=== PATIENT | male | born 1955 | race Caucasian/White ===

== ENCOUNTER 2019-04-23 15:05 | Inpatient (IN) ==
[2019-04-23] MEDS ORDERED: traMADol 50 MG TABLET PO PRN (18:13)
[2019-04-23] MEDS ORDERED: D5% in Water 1,000 ML IVC PRN (18:28)
[2019-04-23] MEDS ORDERED: Dextrose Gel 15 GM/37.5 ML TUBE PO PRN ×2 (18:28)
[2019-04-23] MEDS ORDERED: *HR* Dextrose 50 % in Water (Syg) 50 ML SYRINGE IVP PRN (18:28)
[2019-04-23] MEDS ORDERED: Ondansetron ODT 4 MG TAB.RAPDIS SL PRN (19:01)
[2019-04-23] MEDS ORDERED: Mag Hydrox/Al Hydrox/Simeth 30 ML UDC PO PRN (19:01)
[2019-04-23] MEDS ORDERED: Acetaminophen 325 MG TABLET PO PRN (19:01)
[2019-04-23] MEDS ORDERED: Melatonin 3 MG TABLET PO PRN (19:05)
[2019-04-23] MEDS: Insulin LISPRO 300 UNITS/3 ML VIAL SQ SCH (20:16)
[2019-04-24 06:36] LABS: Basophils % 0.4 %; Eosinophils # 0.2 K/mcL (0.0-0.6); Eosinophils % 1.9 %; Hematocrit 35.1 % (37.5-50.1); Hemoglobin 11.9 g/dL (12.9-16.9); Immature Granulocytes % 0.2 % (0-4); Lymphocytes # 2.1 K/mcL (0.6-4.6); Mean Corpuscular HGB Conc 33.9 g/dL (31.6-35.5); Mean Corpuscular Hemoglobin 29.2 pg (28.0-33.3); Mean Corpuscular Volume 86.2 fL (83.0-100.0); Mean Platelet Volume 11.6 fL (9.4-12.4); Monocytes # 0.7 K/mcL (0.0-1.3); Monocytes % 6.4 %; Neutrophils # 7.8 K/mcL (1.6-8.9); Platelet Count 219 K/mcL (140-400); Red Blood Count 4.07 M/mcL (4.19-5.50); Red Cell Distribution Width 13.2 % (11.5-14.5); Segmented Neutrophils % 72.1 %; White Blood Count 10.8 K/mcL (4.3-11.1)
[2019-04-24 07:13] LABS: Albumin 3.5 g/dL (3.5-5.7); Albumin/Globulin Ratio 1.5 (1.1-2.2); Bilirubin,Total 0.6 mg/dL (0.3-1.0); Calcium 8.8 mg/dL (8.6-10.3); Globulin 2.3 g/dL (2.4-3.5); Magnesium 2.1 mg/dL (1.6-2.6); Potassium 4.1 mEq/L (3.5-5.1); Total Protein 5.8 g/dL (6.4-8.9)
[2019-04-24] MEDS: Insulin LISPRO 300 UNITS/3 ML VIAL SQ SCH ×4 (07:53→20:42)
--- NOTE | 2019-04-24 08:16 | Internal Med History&Physical ---
Date of Encounter: 04/24/19 Time of Encounter: 09:40 Assessment and Plan (1) Right pontine cerebrovascular accident Current visit: Yes Status: Acute Patient with recent history of a right pontine ischemic CVA resulting in left hemiparesis. 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 Noted slight dysarthria with speech. Physical therapy evaluation in progress with recommendations pending. Reports patient continued to have poor balance. We will continue with current plan of care and therapy. We will monitor blood pressure with a systolic goal less than 160. 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 No acute issues noted. Patient noted to continue have dysarthria. (3) Diabetes Current visit: No Status: Chronic No acute issues. Patient's glucose about well-controlled with fingerstick readings less than 150. We will continue with current fingersticks and sliding scale coverage. We will continue patient's current medication regimen. 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 We will keep a goal of less than 160 systolic for blood pressure due to patient's CVA. We will continue with current medications Qualifiers: Hypertension type: essential hypertension Qualified Code(s): I10 - Essential (primary) hypertension (5) CKD (chronic kidney disease) stage 3, GFR 30-59 ml/min Current visit: Yes Status: Chronic No acute issues. Patient's most recent creatinine was 1.57. Continue to monitor patient's renal status to serial labs. We will continue with current medications Internal Medicine - H&P: HPI Chief complaint: Pontine CVA Admitted From: Hospital to Hospital Transfer Plans for Post Hospital Care: Home History of present illness: Mr. Echavarria is a 64 year old male with history of Tomlin's palsy, CK stage III, NIDDM Type II presented at [facility] with left-sided weakness. He was not in tPA window, so Tx was deferred. Brain MRI was consistent with acute infarction in the right michael which measured 11.5 x 10 mm. The CTA of the head and neck were negative for any critical stenosis. Echocardiogram was negative for PFO. Neurology was consulted with recommendations to start the patient on Plavix and stop aspirin, which he was on for a previous stroke. He is also being started on sertraline for due to Hx of depression. He was admitted to this facility for further therapy related to his left hemiparesis and poor balance. Patient currently denies any discomforts or shortness of breath. Patient continues to show poor balance per therapy evaluation. Patient denies any current issues. Past Med Surg Social Fam HX - Past Medical History Medical history: diabetes, hyperlipidemia, hypertension, other Additional medical history: bells palsy. bone spur in right foot Psychiatric history: depression - Past Surgical History Surgical History: appendectomy - Social History Smoking Status: Never smoker Smokeless Tobacco Status: No Alcohol use: none Drug use: none - Family History Sister Hx Family Cancer: Yes (kidney) Internal Medicine - H&P: Meds Glimepiride [Amaryl] 2 mg PO QAM 04/19/19 [History] Losartan/Hydrochlorothiazide [Losartan-Hctz 100-25 mg Tab] 1 tab PO DAILY 04/19/19 [History] Metformin HCl [Glucophage] 500 mg PO DAILY 04/19/19 [History] Metoprolol Succinate [Toprol Xl] 25 mg PO DAILY 04/19/19 [History] Atorvastatin [Lipitor] 40 mg PO HS tablet 04/23/19 [Rx] Clopidogrel [Plavix] 75 mg PO DAILY tablet 04/23/19 [Rx] Sertraline [Zoloft] 50 mg PO DAILY tablet 04/23/19 [Rx] Tramadol HCl [Ultram] 50 mg PO Q8H PRN 7 Days #14 tab 04/23/19 [Rx] Allergy/AdvReac Type Severity Reaction Status Date / Time Amoxicillin Allergy Rash Verified 04/19/19 14:07 peanut Allergy Anaphylaxis Verified 04/19/19 14:07 Penicillins [PCN] Allergy Rash Verified 04/19/19 14:07 All Systems PM: A 10-system review of systems was performed and is negative for pertinent findings except as documented above in the HPI. - Constitutional Constitutional: as per HPI - EENT Eyes: as per HPI Ears: as per HPI Nose, mouth and throat: as per HPI - Cardiovascular Cardiovascular ROS IM: as per HPI - Respiratory Respiratory: as per HPI - Gastrointestinal Gastrointestinal: as per HPI - Genitourinary Genitourinary ROS male: as per HPI - Musculoskeletal Musculoskeletal ROS IM: as per HPI - Integumentary Integumentary IM: as per HPI - Neurological Neurological ROS: as per HPI - Psychiatric Psychiatric: as per HPI, depression - Endocrine Endocrine IM: as per HPI - Constitutional Vitals: Temp Pulse Resp BP Pulse Ox 98.6 F 61 16 137/75 96 04/24/19 08:00 04/24/19 08:00 04/24/19 08:00 04/24/19 08:00 04/24/19 08:00 General appearance: Present: A&O X 3, pleasant - Head Head exam: Present: atraumatic, normocephalic - Eye Eye exam: Present: PERRL, conjuntiva pink, sclera anicteric Pupils: Present: PERRL - Neck Neck exam general surgery: Present: supple, trachea midline. Absent: lymphadenopathy - Respiratory Respiratory exam: Present: decreased breath sounds, CTAB, rales. Absent: accessory muscle use, rhonchi, wheezes Additional comments: Lungs are clear throughout, but noted fine posterior basilar rales. Respiratory effort appears relaxed. No productive cough - Cardiovascular Cardiovascular exam: Present: RRR, +S1, +S2. Absent: diastolic murmur, gallop, rubs, systolic murmur - GI/Abdominal GI/Abdominal exam: Present: normal bowel sounds, soft, no peritoneal signs. Absent: distended, tenderness - Extremities Exam Extremities exam: Present: warm, radial pulses palpable and symmetrical. Absent: calf tenderness, cyanotic, pedal edema - Neurological Exam Neurological exam: Present: CN II-XII intact, oriented X3, facial droop, speech deficit. Absent: pronater drift Additional comments: Patient shows facial droop to the left side but does have a history of Tomlin's palsy. Patient noted to have slight dysarthria with speech. Denies any issues with swallow. Left hemiparesis with left extremities and 4/5 muscle strength in right extremity is 5/5 muscle strength. Noted left drift for both arm and leg. - Skin Skin exam: Present: dry, intact Internal Med - H&P Results - Labs CBC & Chem 7: 04/24/19 05:35 04/24/19 05:35 Labs: Short CBC 04/24/19 Range/Units 05:35 WBC 10.8 (4.3-11.1) K/mcL Hgb 11.9 L (12.9-16.9) g/dL Hct 35.1 L (37.5-50.1) % Plt Count 219 (140-400) K/mcL Neutrophils # 7.8 (1.6-8.9) K/mcL BMP 04/24/19 05:35 Sodium 139 Potassium 4.1 Chloride 107 Carbon Dioxide 22 L BUN 14 Creatinine 1.47 H Glucose 113 H Calcium 8.8 Liver Function 04/24/19 Range/Units 05:35 Total Bilirubin 0.6 (0.3-1.0) mg/dL AST 20 (13-39) Units/L ALT 13 (7-52) Units/L Alkaline Phosphatase 162 H (34-104) Units/L Albumin 3.5 (3.5-5.7) g/dL
[2019-04-24] MEDS: Metoprolol XL (24 HR) Succ 25 MG TAB.ER.24H PO SCH (08:33)
[2019-04-24] MEDS ORDERED: *HR* Metformin 500 MG TABLET PO SCH ×2 (09:00→17:00)
[2019-04-24] MEDS ORDERED: Losartan/HCTZ 50-12.5 TABLET PO SCH (09:00)
[2019-04-24] MEDS ORDERED: *HR* Glimepiride 4 MG TABLET PO SCH (09:00)
[2019-04-24] MEDS ORDERED: cloNIDine HCl 0.1 MG TABLET PO PRN (11:56)
[2019-04-24] MEDS: Cholecalciferol (D-3) 1,000 UNIT (25MCG) TABLET PO SCH (17:23)
[2019-04-24] MEDS: *HR* Enoxaparin 40 MG/0.4 ML SYRINGE SQ SCH (17:24)
[2019-04-25] MEDS: Insulin LISPRO 300 UNITS/3 ML VIAL SQ SCH ×4 (07:39→22:10)
[2019-04-25] MEDS: Metoprolol XL (24 HR) Succ 25 MG TAB.ER.24H PO SCH (08:22)
[2019-04-25] MEDS: Cholecalciferol (D-3) 1,000 UNIT (25MCG) TABLET PO SCH (08:22)
[2019-04-25] MEDS: *HR* Metformin 500 MG TABLET PO SCH (08:22)
[2019-04-25] MEDS: *HR* Enoxaparin 40 MG/0.4 ML SYRINGE SQ SCH (08:22)
--- NOTE | 2019-04-25 09:24 | Internal Med Progress Note ---
Date of Encounter: 04/25/19 Time of Encounter: 09:22 - Assessment and plan (1) Right pontine cerebrovascular accident Current Visit: Yes Status: Acute Assessment and plan: No acute issues. Patient continues with left hemiparesis. Left facial droop which is actually unchanged from preadmission from a history of left Tomlin palsy. Patient continues to participate and therapy and progress as well. We will continue with current plan of care (2) Tomlin's palsy Current Visit: Yes Status: Chronic Assessment and plan: Patient continues to have left facial droop which has been a chronic issue since a remote incident of left Tomlin palsy. (3) Diabetes Current Visit: Yes Status: Chronic Assessment and plan: No acute issues. Patient's glucoses were well-controlled with current medications. Patient has had to have a decrease in his metformin due to diarrhea. We will continue to monitor patient's glucose levels after reduction of medication and will cover with sliding scale if needed. Qualifiers: Diabetes mellitus type: type 2 Diabetes mellitus custodial insulin use: without terminal carman use Diabetes mellitus complication status: with kidney complications Diabetes mellitus complication detail: with chronic kidney disease Chronic kidney disease stage: stage 3 (moderate) Qualified Code(s): E11.22 - Type 2 diabetes mellitus with diabetic chronic kidney disease; N18.3 - Chronic kidney disease, stage 3 (moderate) (4) Hypertension Current Visit: Yes Status: Chronic Assessment and plan: Vital signs of been stable. We will continue with a systolic blood pressure goal of less than 160 due to his CVA. We will continue with current medications Qualifiers: Hypertension type: essential hypertension Qualified Code(s): I10 - Essential (primary) hypertension (5) CKD (chronic kidney disease) stage 3, GFR 30-59 ml/min Current Visit: Yes Status: Chronic Assessment and plan: No acute issues. Patient's most recent creatinine is 1.47. We will continue to follow patient's renal status and serial labs. We will continue with current medications. (6) Obstructive sleep apnea Current Visit: Yes Status: Acute Assessment and plan: Patient noted to have desaturations on his overnight pulse oximetry trending in which his saturations dropped to the mid 80s on room air. Patient denies any history of sleep apnea but statements have been made by his the patient snores at home. We will continue with O2 at night and will arrange for patient have outpatient polysomnography performed - Time Spent With Patient less than 15 minutes - Subjective Interval history: Patient prophylaxis currently denies any discomforts or shortness of breath. Patient denies any acute neurological changes. Patient states she continues to have loose stools and states that he had 3 BMs yesterday, which he relates to an increase in his metformin. Patient's metformin has since been reduced and dosing. Patient also reportedly experienced several desaturations last night wh en he he was wearing his overnight oximetry for trending. He reported to have dropped to the mid 80s for saturations. Patient denies a history of obstructive sleep apnea, but his reportedly has stated that he snores at home - Constitutional Vitals: Temp Pulse Resp BP Pulse Ox 98.6 F 68 18 155/73 93 04/25/19 07:11 04/25/19 07:11 04/25/19 07:11 04/25/19 07:11 04/25/19 07:11 General appearance: Present: A&O X 3, pleasant - Head Head exam: Present: atraumatic, normocephalic - Eye Eye exam: Present: PERRL, conjuntiva pink, sclera anicteric Pupils: Present: PERRL - Neck Neck exam general surgery: Present: supple, trachea midline. Absent: lymphadenopathy - Respiratory Respiratory exam: Present: CTAB. Absent: accessory muscle use, rales, rhonchi, wheezes - Cardiovascular Cardiovascular exam: Present: RRR, +S1, +S2. Absent: diastolic murmur, gallop, rubs, systolic murmur - GI/Abdominal GI/Abdominal exam: Present: normal bowel sounds, soft, no peritoneal signs. Absent: distended, tenderness - Extremities Exam Extremities exam: Present: warm, radial pulses palpable and symmetrical. Absent: calf tenderness, cyanotic, pedal edema - Neurological Exam Neurological exam: Present: oriented X3, facial droop, speech deficit. Absent: pronater drift Additional comments: Patient continues to have a slight facial droop, but does have a history of left Tomlin's palsy. Patient states that he has not filled his facial droop is any wor se. Noticed slight dysarthria. Patient continues to have left hemiparesis with left extremities at 4/5 muscle strength in right extremities at 5/5 muscle strength - Skin Skin exam: Present: dry, intact Internal Medicine: Result - Labs CBC & Chem 7: 04/24/19 05:35 04/24/19 05:35 Consult Discharge Plan - Plan Referrals: Eligio Mancilla DO [Primary Care Provider] -
[2019-04-26 06:59] LABS: BUN/Creatinine Ratio 12 (6-26); Blood Urea Nitrogen 17 mg/dL (8-23); Calcium 8.9 mg/dL (8.6-10.3); Carbon Dioxide 25 mEq/L (23-29); Chloride 107 mEq/L (98-107); Glucose 88 mg/dL (70-105); Osmolality,Calculated 291 (280-300); Potassium 3.4 mEq/L (3.5-5.1); Sodium 140 mEq/L (136-145); eGFR For African Americans > 60 (> 60); eGFR For Non-African Americans 51 (> 60)
[2019-04-26] MEDS: Insulin LISPRO 300 UNITS/3 ML VIAL SQ SCH ×4 (09:23→20:19)
--- NOTE | 2019-04-26 09:23 | Internal Med Progress Note ---
Date of Encounter: 04/26/19 Time of Encounter: 09:22 - Assessment and plan (1) CVA (cerebral vascular accident) Current Visit: No Status: Acute Assessment and plan: Right pontine stroke is seeming to have improvement, almost daily. Therapies will continue as planned. Qualifiers: CVA mechanism: unspecified Qualified Code(s): I63.9 - Cerebral infarction, unspecified (2) Obstructive sleep apnea Current Visit: Yes Status: Acute Assessment and plan: Patient wore oxygen last night and states that he slept better. He will require documentation again before discharge so we may get him home O2 and until he can go through polysomnography. (3) Hypertension Current Visit: Yes Status: Chronic Assessment and plan: Stable for now. Qualifiers: Hypertension type: essential hypertension Qualified Code(s): I10 - Essential (primary) hypertension (4) Diabetes Current Visit: Yes Status: Chronic Assessment and plan: We will continue on current regimen and follow as noted in subjective. Qualifiers: Diabetes mellitus type: type 2 Diabetes mellitus care home insulin use: without care home use Diabetes mellitus complication status: with kidney compl ications Diabetes mellitus complication detail: with chronic kidney disease Chronic kidney disease stage: stage 3 (moderate) Qualified Code(s): E11.22 - Type 2 diabetes mellitus with diabetic chronic kidney disease; N18.3 - Chronic kidney disease, stage 3 (moderate) (5) Hypokalemia Current Visit: Yes Status: Acute Assessment and plan: Will supplement and check magnesium. (6) CKD (chronic kidney disease) stage 3, GFR 30-59 ml/min Current Visit: Yes Status: Chronic Assessment and plan: Stable. (7) Depression due to acute cerebrovascular accident (CVA) Current Visit: No Status: Acute Assessment and plan: Clinically stable and mood seems better. - Subjective Interval history: Patient is without complaint. He feels that he is getting stronger and more coordination. Therapy is going well. Diarrhea is better. I told him that in a couple of days we will think about increasing his Glucophage. However, his sugar was only 82 this morning so we may not need to. Patient has no complaint of chest discomfort, dyspnea, orthopnea, palpitations, nausea or vomiting, constipation or diarrhea, other changes in bowel habits, difficulty with urination, rash or itching, or other new complaints, except as mentioned above. Review of systems is otherwise negative. I discussed management of patient's care with nursing staff. - Constitutional Vitals: Temp Pulse Resp BP Pulse Ox 98.1 F 69 16 133/70 93 04/26/19 07:35 04/26/19 07:35 04/26/19 07:35 04/26/19 07:35 04/26/19 07:35 Exam: Examination: (Except as mentioned above): General: In no apparent distress. Alert and oriented 3. Nondiaphoretic. Head: Atraumatic and normocephalic. Respiratory: No use of accessory muscles. Lungs are clear throughout. Normal airflow. Cardiovascular: Regular rate and rhythm without murmur appreciated. Abdomen: Bowel sounds are normal. No hepatosplenomegaly mass or tenderness appreciated. Obese and therefore difficult to palpate deeply. Extremities: No cyanosis clubbing or edema. Patient is examined upright in chair and this also limits exam. Skin: Warm and non-diaphoretic with no new lesions noted. Internal Medicine: Result - Labs CBC & Chem 7: 04/24/19 05:35 04/26/19 05:13 Labs: [facility] 04/26/19 05:13 Sodium 140 Potassium 3.4 L Chloride 107 Carbon Dioxide 25 BUN 17 Creatinine 1.41 H Glucose 88 Calcium 8.9 Consult Discharge Plan - Plan Referrals: Eligio Mancilla DO [Primary Care Provider] -
[2019-04-26] MEDS: *HR* Metformin 500 MG TABLET PO SCH (09:37)
[2019-04-26] MEDS: Metoprolol XL (24 HR) Succ 25 MG TAB.ER.24H PO SCH (09:37)
[2019-04-26] MEDS: Cholecalciferol (D-3) 1,000 UNIT (25MCG) TABLET PO SCH (09:37)
[2019-04-26] MEDS: *HR* Enoxaparin 40 MG/0.4 ML SYRINGE SQ SCH (09:38)
[2019-04-27] MEDS: Insulin LISPRO 300 UNITS/3 ML VIAL SQ SCH ×4 (07:26→20:25)
[2019-04-27] MEDS: Metoprolol XL (24 HR) Succ 25 MG TAB.ER.24H PO SCH (07:41)
[2019-04-27] MEDS: Cholecalciferol (D-3) 1,000 UNIT (25MCG) TABLET PO SCH (07:41)
[2019-04-27] MEDS: *HR* Enoxaparin 40 MG/0.4 ML SYRINGE SQ SCH (07:42)
[2019-04-27] MEDS: *HR* Metformin 500 MG TABLET PO SCH (07:42)
--- NOTE | 2019-04-27 14:36 | Internal Med Progress Note ---
Date of Encounter: 04/27/19 Time of Encounter: 14:36 - Assessment and plan (1) CVA (cerebral vascular accident) Current Visit: No Status: Acute Assessment and plan: Right pontine stroke is continuing to improve. Will resume therapy, tomorrow. Qualifiers: CVA mechanism: unspecified Qualified Code(s): I63.9 - Cerebral infarction, unspecified (2) Obstructive sleep apnea Current Visit: Yes Status: Acute Assessment and plan: We will continue to follow. (3) Hypertension Current Visit: Yes Status: Chronic Assessment and plan: Adequate control. Qualifiers: Hypertension type: essential hypertension Qualified Code(s): I10 - Essential (primary) hypertension (4) Diabetes Current Visit: Yes Status: Chronic Assessment and plan: We will continue current regimen. Qualifiers: Diabetes mellitus type: type 2 Diabetes mellitus residential insulin use: without residential use Diabetes mellitus complication status: with kidney complications Diabetes mellitus complication detail: with chronic kidney disease Chronic kidney disease stage: stage 3 (moderate) Qualified Code(s): E11.22 - Type 2 diabetes mellitus with diabetic chronic kidney disease; N18.3 - Chronic kidney disease, stage 3 (moderate) (5) Hypokalemia Current Visit: Yes Status: Acute Assessment and plan: We will check again tomorrow. (6) CKD (chronic kidney disease) stage 3, GFR 30-59 ml/min Current Visit: Yes Status: Chronic Assessment and plan: Stable and will follow. (7) Depression due to acute cerebrovascular accident (CVA) Current Visit: No Status: Acute Assessment and plan: Seems to be improved. - Subjective Interval history: Patient is without complaint. Patient feels that he slept well last night and needs scanning more strength in his left side. He feels that his voice is weaker as the day goes on but generally improved. He denies other problems. Diarrhea has resolved. Patient has no complaint of chest discomfort, dyspnea, orthopnea, palpitations, nausea or vomiting, constipation or diarrhea, other changes in bowel habits, difficulty with urination, rash or itching, or other new complaints, except as mentioned above. Review of systems is otherwise negative. I discussed management of patient's care with nursing staff. - Constitutional Vitals: Temp Pulse Resp BP Pulse Ox 98.2 F 63 16 137/77 96 04/27/19 07:00 04/27/19 07:00 04/27/19 07:00 04/27/19 07:00 04/27/19 07:00 Exam: Examination: (Except as mentioned above): General: In no apparent distress. Alert and oriented 3. Nondiaphoretic. Head: Atraumatic and normocephalic. Respiratory: No use of accessory muscles. Lungs are clear throughout. Normal airflow. Cardiovascular: Regular rate and rhythm without murmur appreciated. Abdomen: Bowel sounds are normal. No hepatosplenomegaly mass or tenderness appreciated. Obese and therefore difficult to palpate deeply. Patient is examined upright in chair and this also limits exam. Extremities: No cyanosis clubbing or edema. Skin: Warm and non-diaphoretic with no new lesions noted. Neurological: Patient still with minimal left-sided weakness which might be old from Tomlin's palsy or from stroke. Left hand grasp is good at 4+/5, however, he has some ataxia. Foot dorsiflexion is still slightly weak but again, improved. Internal Medicine: Result - Labs CBC & Chem 7: 04/24/19 05:35 04/26/19 05:13 Consult Discharge Plan - Plan Referrals: Eligio Mancilla DO [Primary Care Provider] -
[2019-04-28] MEDS: Insulin LISPRO 300 UNITS/3 ML VIAL SQ SCH ×4 (08:20→20:03)
[2019-04-28] MEDS: Metoprolol XL (24 HR) Succ 25 MG TAB.ER.24H PO SCH (08:24)
[2019-04-28] MEDS: Cholecalciferol (D-3) 1,000 UNIT (25MCG) TABLET PO SCH (08:25)
[2019-04-28] MEDS: *HR* Metformin 500 MG TABLET PO SCH (08:25)
[2019-04-28] MEDS: *HR* Enoxaparin 40 MG/0.4 ML SYRINGE SQ SCH (08:25)
--- NOTE | 2019-04-28 10:15 | Internal Med Progress Note ---
Date of Encounter: 04/28/19 Time of Encounter: 10:11 - Assessment and plan (1) Right pontine cerebrovascular accident Current Visit: Yes Status: Acute Assessment and plan: No acute issues. Patient continues with left hemiparesis, which he seems to have an increased strength. Left facial droop which is actually unchanged from preadmission from a history of left Tomlin palsy. Patient continues to participate and therapy and progress as well. We will continue with current plan of care. 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 (3) Diabetes Current Visit: Yes Status: Chronic Assessment and plan: No acute issues. Patient's glucoses were well-controlled with current medications. Patient has had to have a decrease in his metformin due to diarrhea. We will continue to monitor patient's glucose levels after reduction of medication and will cover with sliding scale if needed. Qualifiers: Diabetes mellitus type: type 2 Diabetes mellitus usp insulin use: without usp use Diabetes mellitus complication status: with kidney complications Diabetes mellitus complication detail: with chronic kidney disease Chronic kidney disease stage: stage 3 (moderate) Qualified Code(s): E11.22 - Type 2 diabetes mellitus with diabetic chronic kidney disease; N18.3 - Chronic kidney disease, stage 3 (moderate) (4) Hypertension Current Visit: Yes Status: Chronic Assessment and plan: Vital signs of been stable. We will continue with a systolic blood pressure goal of less than 160 due to his CVA. We will continue with current medications Qualifiers: Hypertension type: essential hypertension Qualified Code(s): I10 - Essential (primary) hypertension (5) CKD (chronic kidney disease) stage 3, GFR 30-59 ml/min Current Visit: Yes Status: Chronic Assessment and plan: No acute issues. Patient's most recent creatinine is 1.41. We will continue to follow patient's renal status and serial labs. We will continue with current medications. (6) Obstructive sleep apnea Current Visit: Yes Status: Acute Assessment and plan: Patient noted to have desaturations on his overnight pulse oximetry trending in which his saturations dropped to the mid 80s on room air. Patient denies any history of sleep apnea but statements have been made by his the patient snores at home. We will continue with O2 at night and will arrange for patient have outpatient polysomnography performed - Time Spent With Patient less than 15 minutes - Subjective Interval history: Patient appears relaxed and currently denies any discomforts or shortness of breath. Patient states that he pulses strength has been only returning to his left extremities. He denies any difficulty with swallow. Patient states that his diarrhea has lessened over the past few days. - Constitutional Vitals: Temp Pulse Resp BP Pulse Ox 98.4 F 65 14 130/75 92 04/28/19 08:43 04/28/19 08:43 04/28/19 08:43 04/28/19 08:43 04/28/19 08:43 General appearance: Present: A&O X 3, pleasant - Head Head exam: Present: atraumatic, normocephalic - Eye Eye exam: Present: PERRL, conjuntiva pink, sclera anicteric Pupils: Present: PERRL - Neck Neck exam general surgery: Present: supple, trachea midline. Absent: lymphadenopathy - Respiratory Respiratory exam: Present: CTAB. Absent: accessory muscle use, rales, rhonchi, wheezes - Cardiovascular Cardiovascular exam: Present: RRR, +S1, +S2. Absent: diastolic murmur, gallop, rubs, systolic murmur - GI/Abdominal GI/Abdominal exam: Present: normal bowel sounds, soft, no peritoneal signs. Absent: distended, tenderness - Extremities Exam Extremities exam: Present: warm, radial pulses palpable and symmetrical. Abs ent: calf tenderness, cyanotic, pedal edema - Neurological Exam Neurological exam: Present: CN II-XII intact, oriented X3, no focal deficits, pronater drift, facial droop, speech deficit Additional comments: Patient continues with left facial droop which is chronic residual from remote Tomlin's palsy. Patient continues with slight dysarthria. Left hemiparesis with left extremities at 4/5 muscle strength. And right extremities at 5/5 muscle strength. Patient continues to show a left pronator drift - Skin Skin exam: Present: dry, intact Internal Medicine: Result - Labs CBC & Chem 7: 04/24/19 05:35 04/26/19 05:13 Consult Discharge Plan - Plan Referrals: Eligio Mancilla DO [Primary Care Provider] -
[2019-04-29] MEDS: Insulin LISPRO 300 UNITS/3 ML VIAL SQ SCH ×4 (07:53→20:20)
[2019-04-29] MEDS: Metoprolol XL (24 HR) Succ 25 MG TAB.ER.24H PO SCH (09:34)
[2019-04-29] MEDS: Cholecalciferol (D-3) 1,000 UNIT (25MCG) TABLET PO SCH (09:34)
[2019-04-29] MEDS: *HR* Enoxaparin 40 MG/0.4 ML SYRINGE SQ SCH (09:34)
[2019-04-29] MEDS: *HR* Metformin 500 MG TABLET PO SCH (09:34)
--- NOTE | 2019-04-29 11:12 | Internal Med Progress Note ---
Date of Encounter: 04/29/19 Time of Encounter: 11:07 - Assessment and plan (1) Right pontine cerebrovascular accident Current Visit: Yes Status: Acute Assessment and plan: Continue PT and OT. will monitor progress. Left-sided weakness. Has had left facial droop since had Tomlin's palsy episode. 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 Monitor fingerstick blood sugar. Qualifiers: Diabetes mellitus type: type 2 Diabetes mellitus spice cleaner insulin use: without snf use Diabetes mellitus complication status: with kidney complications Diabetes mellitus complication detail: with chronic kidney disease Chronic kidney disease stage: stage 3 (moderate) Qualified Code(s): E11.22 - Type 2 diabetes mellitus with diabetic chronic kidney disease; N18.3 - Chronic kidney disease, stage 3 (moderate) (4) Hypertension Current Visit: Yes Status: Chronic Assessment and plan: Controlled with current medication. Monitor blood pressure. Qualifiers: Hypertension type: essential hypertension Qualified Code(s): I10 - Essential (primary) hypertension (5) CKD (chronic kidney disease) stage 3, GFR 30-59 ml/min Current Visit: Yes Status: Chronic Assessment and plan: Stable. Avoid nephrotoxic agents. Last creatinine level I.41. - Time Spent With Patient less than 15 minutes - Subjective Interval history: Participating well with therapy. Denies any pain complaints, fever, chills, nausea vomiting or diarrhea, shortness breath or chest pain. - Constitutional Vitals: Temp Pulse Resp BP Pulse Ox 97.9 F 63 16 137/78 92 04/29/19 07:00 04/29/19 07:00 04/29/19 07:00 04/29/19 07:00 04/29/19 07:00 General appearance: Present: A&O X 3, pleasant Exam: Left facial droop - Head Head exam: Present: atraumatic, normocephalic - Eye Eye exam: Present: PERRL, conjuntiva pink, sclera anicteric Pupils: Present: PERRL - Neck Neck exam general surgery: Present: supple, trachea midline. Absent: lymphadenopathy - Respiratory Respiratory exam: Present: CTAB. Absent: accessory muscle use, rales, rhonchi, wheezes - Cardiovascular Cardiovascular exam: Present: RRR, +S1, +S2. Absent: diastolic murmur, gallop, rubs, systolic murmur - GI/Abdominal GI/Abdominal exam: Present: normal bowel sounds, soft, no peritoneal signs. Absent: distended, tenderness - Extremities Exam Extremities exam: Present: warm, radial pulses palpable and symmetrical. Absent: calf tenderness, cyanotic, pedal edema Additional comments: Left-sided weakness - Neurological Exam Neurological exam: Present: CN II-XII intact, oriented X3, no focal deficits. Absent: pronater drift, facial droop, speech deficit - Skin Skin exam: Present: dry, intact Internal Medicine: Result - Labs CBC & Chem 7: 04/24/19 05:35 04/26/19 05:13 Consult Discharge Plan - Plan Referrals: Eligio Mancilla DO [Primary Care Provider] -
[2019-04-30 06:12] LABS: BUN/Creatinine Ratio 14 (6-26); Blood Urea Nitrogen 20 mg/dL (8-23); Calcium 9.1 mg/dL (8.6-10.3); Carbon Dioxide 25 mEq/L (23-29); Chloride 106 mEq/L (98-107); Glucose 106 mg/dL (70-105); Osmolality,Calculated 293 (280-300); Potassium 3.8 mEq/L (3.5-5.1); Sodium 140 mEq/L (136-145); eGFR For African Americans > 60 (> 60); eGFR For Non-African Americans 50 (> 60)
[2019-04-30] MEDS: Insulin LISPRO 300 UNITS/3 ML VIAL SQ SCH ×4 (07:41→20:29)
[2019-04-30] MEDS: *HR* Metformin 500 MG TABLET PO SCH (07:54)
[2019-04-30] MEDS: Cholecalciferol (D-3) 1,000 UNIT (25MCG) TABLET PO SCH (07:54)
[2019-04-30] MEDS: *HR* Enoxaparin 40 MG/0.4 ML SYRINGE SQ SCH (07:54)
[2019-04-30] MEDS: Metoprolol XL (24 HR) Succ 25 MG TAB.ER.24H PO SCH (07:55)
--- NOTE | 2019-04-30 12:06 | Internal Med Progress Note ---
Date of Encounter: 04/30/19 Time of Encounter: 12:05 - Assessment and plan (1) Right pontine cerebrovascular accident Current Visit: Yes Status: Acute Assessment and plan: Continue PT and OT. will monitor progress. Left-sided weakness. Has had left facial droop since had Tomlin's palsy episode. 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 Monitor fingerstick blood sugar. Qualifiers: Diabetes mellitus type: type 2 Diabetes mellitus intermediate accountant insulin use: without group home use Diabetes mellitus complication status: with kidney complications Diabetes mellitus complication detail: with chronic kidney disease Chronic kidney disease stage: stage 3 (moderate) Qualified Code(s): E11.22 - Type 2 diabetes mellitus with diabetic chronic kidney disease; N18.3 - Chronic kidney disease, stage 3 (moderate) (4) Hypertension Current Visit: Yes Status: Chronic Assessment and plan: Controlled with current medication. Monitor blood pressure. Qualifiers: Hypertension type: essential hypertension Qualified Code(s): I10 - Essential (primary) hypertension (5) CKD (chronic kidney disease) stage 3, GFR 30-59 ml/min Current Visit: Yes Status: Chronic Assessment and plan: Stable. Avoid nephrotoxic agents. Last creatinine level I.41. - Time Spent With Patient less than 15 minutes - Subjective Interval history: Ambulating with Walker. Standby assist to contact guard assist. Participating well with therapy. Denies any pain complaints, fever, chills, nausea vomiting or diarrhea, shortness breath or chest pain. - Constitutional Vitals: Temp Pulse Resp BP Pulse Ox 98.3 F 63 18 137/78 95 04/30/19 07:14 04/30/19 07:14 04/30/19 07:14 04/30/19 07:14 04/30/19 07:14 General appearance: Present: A&O X 3, pleasant - Head Head exam: Present: atraumatic, normocephalic - Eye Eye exam: Present: PERRL, conjuntiva pink, sclera anicteric Pupils: Present: PERRL - Neck Neck exam general surgery: Present: supple, trachea midline. Absent: lymphadenopathy - Respiratory Respiratory exam: Present: CTAB. Absent: accessory muscle use, rales, rhonchi, wheezes - Cardiovascular Cardiovascular exam: Present: RRR, +S1, +S2. Absent: diastolic murmur, gallop, rubs, systolic murmur - GI/Abdominal GI/Abdominal exam: Present: normal bowel sounds, soft, no peritoneal signs. Absent: distended, tenderness - Extremities Exam Extremities exam: Present: warm, radial pulses palpable and symmetrical. Absent: calf tenderness, cyanotic, pedal edema - Neurological Exam Neurological exam: Present: CN II-XII intact, oriented X3, no focal deficits. Absent: pronater drift, facial droop, speech deficit - Skin Skin exam: Present: dry, intact Internal Medicine: Result - Labs CBC & Chem 7: 04/24/19 05:35 04/30/19 05:03 Labs: BMP 04/30/19 05:03 Sodium 140 Potassium 3.8 Chloride 106 Carbon Dioxide 25 BUN 20 Creatinine 1.44 H Glucose 106 H Calcium 9.1 Consult Discharge Plan - Plan Referrals: Eligio Mancilla DO [Primary Care Provider] -
--- NOTE | 2019-04-30 14:48 | Psychological Evaluation ---
Date of Encounter: 04/30/19 Time of Encounter: 08:30 (bedside) History of Present Illness History of present illness: Mr. Echavarria is a 64 year old male with acute onset of left-sided weakness on 04/20/2019. He had a severe headache the night before but no other associated symptoms prior. He was found to have a pontine stroke with no source on embolic workup. He is diabetic but his hemoglobin A-1 C was recently 6.3. He has been trying to improve his dietary control. His blood pressure has not been significantly high but he has been taking for medicines including 1 that he resumed and his finally stopped 4 years before, lisinopril/hydrochlorothiazide. hx of [place] palsy -30 years. His depression was discussed and he states this is because of his stroke, not pre-existing. Of note, the patient has been under some stress and retired 2 months ago. I expressed the fact that he should have a couple of months dedicated to stroke recovery and then after that he needs to develop purpose so that his motivation is improved. (This should also be a psychological treatment for depression and anxiety.) Past Medical History - Psychiatric History Psychiatric history: Reports: no psych history Home Medications and Allergies Glimepiride [Amaryl] 2 mg PO QAM 04/19/19 [History] Losartan/Hydrochlorothiazide [Losartan-Hctz 100-25 mg Tab] 1 tab PO DAILY 04/19/19 [History] Metformin HCl [Glucophage] 500 mg PO DAILY 04/19/19 [History] Metoprolol Succinate [Toprol Xl] 25 mg PO DAILY 04/19/19 [History] Atorvastatin [Lipitor] 40 mg PO HS tablet 04/23/19 [Rx] Clopidogrel [Plavix] 75 mg PO DAILY tablet 04/23/19 [Rx] Sertraline [Zoloft] 50 mg PO DAILY tablet 04/23/19 [Rx] Tramadol HCl [Ultram] 50 mg PO Q8H PRN 7 Days #14 tab 04/23/19 [Rx] Allergy/AdvReac Type Severity Reaction Status Date / Time Amoxicillin Allergy Rash Verified 04/19/19 14:07 peanut Allergy Anaphylaxis Verified 04/19/19 14:07 Penicillins [PCN] Allergy Rash Verified 04/19/19 14:07 Social History - Social History Social History: 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 2 adult children and 4 grandchildren. 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 - Tobacco Use Smoking Status: Never smoker - Alcohol Use Alcohol Use: none - Drug Use Drug Use: none Cognitive/Emotional Assessment - Cognitive Ability Abstract Thinking Ability: No Deficits Noted Attention Span Ability: Capable of Focused Attention Problem Solving Ability: Able To Solve Simple Problems Safety Awareness: Patient Is Aware of Their Safety Level of Alertness: Alert Memory Description: Recent Intact Orientation: Person, Place, Time, Day of Week, Month, Year Ability to Follow Directions: Good Speech Pattern: Normal rate Thought Process: Logical Calculations: Able to spell WORLD backw Additional Findings: Digits forward 6 and backward 3. Processing was slow. Difficulty with serial 7's from 100. Able to perform mental math calculations. Discussed his difficulty with divided attention and slow processing with team and ST/Ot will further eval. - Emotional Status Mood Description: Depressed Affect Description: Flat Coping Ability: Unsure about ability to cope Additional Findings: Stated initially he was hopeless but thinks outcome will be better now. Concer emeka that others are honest regarding his status and progress. He stated he has always been reserved and an introvert, Discussed being in public and doesn't want others to feel pity or sympathy for him. 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 Treatment Frequency: weekly Next Session Date: 05/07/19 Procedures - Participants Therapy Participant: Patient - Session Time Session Start Time: 08:30 Session Stop Time: 09:00
[2019-05-01] MEDS: Insulin LISPRO 300 UNITS/3 ML VIAL SQ SCH ×4 (09:14→20:21)
[2019-05-01] MEDS: Cholecalciferol (D-3) 1,000 UNIT (25MCG) TABLET PO SCH (09:55)
[2019-05-01] MEDS: *HR* Metformin 500 MG TABLET PO SCH (09:55)
[2019-05-01] MEDS: Metoprolol XL (24 HR) Succ 25 MG TAB.ER.24H PO SCH (09:55)
[2019-05-01] MEDS: *HR* Enoxaparin 40 MG/0.4 ML SYRINGE SQ SCH (09:55)
--- NOTE | 2019-05-01 10:52 | Internal Med Progress Note ---
Date of Encounter: 05/01/19 Time of Encounter: 10:50 - Assessment and plan (1) Right pontine cerebrovascular accident Current Visit: Yes Status: Acute Assessment and plan: No acute issues. Patient continues with left hemiparesis, which he seems to have an increased strength. Left facial droop which is actually unchanged from preadmission from a history of left Tomlin palsy. Patient continues to participate and therapy and progress as well. We will continue with current plan of care. 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 (3) Diabetes Current Visit: Yes Status: Chronic Assessment and plan: No acute issues. Patient's glucoses were well-controlled with current medications. Patient has had to have a decrease in his metformin due to diarrhea. We will continue to monitor patient's glucose levels after reduction of medication and will cover with sliding scale if needed. Qualifiers: Diabetes mellitus type: type 2 Diabetes mellitus alf insulin use: without alf use Diabetes mellitus complication status: with kidney complications Diabetes mellitus complication detail: with chronic kidney disease Chronic kidney disease stage: stage 3 (moderate) Qualified Code(s): E11.22 - Type 2 diabetes mellitus with diabetic chronic kidney disease; N18.3 - Chronic kidney disease, stage 3 (moderate) (4) Hypertension Current Visit: Yes Status: Chronic Assessment and plan: Vital signs of been stable. We will continue with a systolic blood pressure goal of less than 160 due to his CVA. We will continue with current medications Qualifiers: Hypertension type: essential hypertension Qualified Code(s): I10 - Essential (primary) hypertension (5) CKD (chronic kidney disease) stage 3, GFR 30-59 ml/min Current Visit: Yes Status: Chronic Assessment and plan: No acute issues. Patient's most recent creatinine is 1.41. We will continue to follow patient's renal status and serial labs. We will continue with current medications. (6) Obstructive sleep apnea Current Visit: Yes Status: Acute Assessment and plan: Patient noted to have desaturations on his overnight pulse oximetry trending in which his saturations dropped to the mid 80s on room air. Patient denies any history of sleep apnea but statements have been made by his the patient snores at home. We will continue with O2 at night and will arrange for patient have outpatient polysomnography performed - Time Spent With Patient less than 15 minutes - Subjective Interval history: Patient appears relaxed and currently denies any discomforts or shortness of breath. Denies any further diarrhea. Patient states that he strength has been only returning to his left extremities. He denies any difficulty with swallow. - Constitutional Vitals: Temp Pulse Resp BP Pulse Ox 97.6 F 63 18 136/78 92 05/01/19 07:27 05/01/19 07:27 05/01/19 07:27 05/01/19 07:27 05/01/19 07:27 General appearance: Present: A&O X 3, pleasant - Head Head exam: Present: atraumatic, normocephalic - Eye Eye exam: Present: PERRL, conjuntiva pink, sclera anicteric Pupils: Present: PERRL - Neck Neck exam general surgery: Present: supple, trachea midline. Absent: lymphadenopathy - Respiratory Respiratory exam: Present: CTAB. Absent: accessory muscle use, rales, rhonchi, wheezes - Cardiovascular Cardiovascular exam: Present: RRR, +S1, +S2. Absent: diastolic murmur, gallop, rubs, systolic murmur - GI/Abdominal GI/Abdominal exam: Present: normal bowel sounds, soft, no peritoneal signs. Absent: distended, tenderness - Extremities Exam Extremities exam: Present: warm, radial pulses palpable and symmetrical. Absent: calf tenderness, cyanotic, pedal edema - Neurological Exam Neurological exam: Present: CN II-XII intact, oriented X3, pronater drift, facial droop, speech deficit Additional comments: Patient continues with left facial droop which is secondary to remote Tomlin's palsy. Slight dysarthria noted. Patient continues with left hemiparesis with his left extremities at 4/5 muscle strength in the right extremities at 5/5 muscle strength. - Skin Skin exam: Present: dry, intact Internal Medicine: Result - Labs CBC & Chem 7: 04/24/19 05:35 04/30/19 05:03 Consult Discharge Plan - Plan Referrals: Eligio Mancilla DO [Primary Care Provider] -
[2019-05-01] MEDS: Artificial Tears SOLN 15 ML BOTTLE LEFT EYE SCH (20:26)
[2019-05-02] MEDS: Insulin LISPRO 300 UNITS/3 ML VIAL SQ SCH ×4 (07:29→20:27)
[2019-05-02] MEDS: Artificial Tears SOLN 15 ML BOTTLE LEFT EYE SCH ×3 (07:41→20:37)
[2019-05-02] MEDS: *HR* Enoxaparin 40 MG/0.4 ML SYRINGE SQ SCH (07:42)
[2019-05-02] MEDS: *HR* Metformin 500 MG TABLET PO SCH (07:42)
[2019-05-02] MEDS: Metoprolol XL (24 HR) Succ 25 MG TAB.ER.24H PO SCH (07:42)
[2019-05-02] MEDS: Cholecalciferol (D-3) 1,000 UNIT (25MCG) TABLET PO SCH (07:42)
--- NOTE | 2019-05-02 12:48 | Internal Med Progress Note ---
Date of Encounter: 05/02/19 Time of Encounter: 12:47 - Assessment and plan (1) Right pontine cerebrovascular accident Current Visit: Yes Status: Acute Assessment and plan: Continue PT and OT. will monitor progress. Left-sided weakness. Has had left facial droop since had Tomlin's palsy episode. 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 Monitor fingerstick blood sugar. Qualifiers: Diabetes mellitus type: type 2 Diabetes mellitus terminologist insulin use: without custodial use Diabetes mellitus complication status: with kidney complications Diabetes mellitus complication detail: with chronic kidney disease Chronic kidney disease stage: stage 3 (moderate) Qualified Code(s): E11.22 - Type 2 diabetes mellitus with diabetic chronic kidney disease; N18.3 - Chronic kidney disease, stage 3 (moderate) (4) Hypertension Current Visit: Yes Status: Chronic Assessment and plan: Controlled with current medication. Monitor blood pressure. Qualifiers: Hypertension type: essential hypertension Qualified Code(s): I10 - Essential (primary) hypertension (5) CKD (chronic kidney disease) stage 3, GFR 30-59 ml/min Current Visit: Yes Status: Chronic Assessment and plan: Stable. Avoid nephrotoxic agents. Last creatinine level I.41. - Time Spent With Patient less than 15 minutes - Subjective Interval history: Ambulating with Walker Standby assist to contact guard assist. therapy practicing ambulating with a cane. Participating well with therapy. Denies any pain complaints, fever, chills, nausea vomiting or diarrhea, shortness breath or chest pain. - Constitutional Vitals: Temp Pulse Resp BP Pulse Ox 98.2 F 69 18 135/76 95 05/02/19 07:59 05/02/19 07:59 05/02/19 07:59 05/02/19 07:59 05/02/19 07:59 General appearance: Present: A&O X 3, pleasant, no acute distress, answers questions appropriately - Head Head exam: Present: atraumatic, normocephalic - Eye Eye exam: Present: PERRL, conjuntiva pink, sclera anicteric Pupils: Present: PERRL - Neck Neck exam general surgery: Present: supple, trachea midline. Absent: lymphadenopathy - Respiratory Respiratory exam: Present: CTAB. Absent: accessory muscle use, rales, rhonchi, wheezes - Cardiovascular Cardiovascular exam: Present: RRR, +S1, +S2. Absent: diastolic murmur, gallop, rubs, systolic murmur - GI/Abdominal GI/Abdominal exam: Present: normal bowel sounds, soft, no peritoneal signs. Absent: distended, tenderness - Extremities Exam Extremities exam: Present: warm, radial pulses palpable and symmetrical. Absent: calf tenderness, cyanotic, pedal edema - Neurological Exam Neurological exam: Present: CN II-XII intact, oriented X3, no focal deficits. Absent: pronater drift, facial droop, speech deficit - Skin Skin exam: Present: dry, intact Internal Medicine: Result - Labs CBC & Chem 7: 04/24/19 05:35 04/30/19 05:03 Consult Discharge Plan - Plan Referrals: Eligio Mancilla DO [Primary Care Provider] -
[2019-05-03] MEDS: Insulin LISPRO 300 UNITS/3 ML VIAL SQ SCH ×4 (08:21→21:30)
[2019-05-03] MEDS: Cholecalciferol (D-3) 1,000 UNIT (25MCG) TABLET PO SCH (08:44)
[2019-05-03] MEDS: Metoprolol XL (24 HR) Succ 25 MG TAB.ER.24H PO SCH (08:44)
[2019-05-03] MEDS: *HR* Metformin 500 MG TABLET PO SCH (08:45)
[2019-05-03] MEDS: *HR* Enoxaparin 40 MG/0.4 ML SYRINGE SQ SCH (08:45)
[2019-05-03] MEDS: Artificial Tears SOLN 15 ML BOTTLE LEFT EYE SCH ×3 (08:45→19:58)
--- NOTE | 2019-05-03 09:34 | Internal Med Progress Note ---
Date of Encounter: 05/04/19 Time of Encounter: 09:32 - Assessment and plan (1) CVA (cerebral vascular accident) Current Visit: No Status: Acute Assessment and plan: The patient continued to make slow progress with therapies. Qualifiers: CVA mechanism: unspecified Qualified Code(s): I63.9 - Cerebral infarction, unspecified (2) Obstructive sleep apnea Current Visit: Yes Status: Acute Assessment and plan: Stable. (3) Hypertension Current Visit: Yes Status: Chronic Assessment and plan: Control is adequate. Qualifiers: Hypertension type: essential hypertension Qualified Code(s): I10 - Essential (primary) hypertension (4) Diabetes Current Visit: Yes Status: Chronic Assessment and plan: Adequate control with current regimen. Qualifiers: Diabetes mellitus type: type 2 Diabetes mellitus prison insulin use: without terminal operator use Diabetes mellitus complication status: with kidney complications Diabetes mellitus complication detail: with chronic kidney disease Chronic kidney disease stage: stage 3 (moderate) Qualified Code(s): E11.22 - Type 2 diabetes mellitus with diabetic chronic kidney disease; N18.3 - Chronic kidney disease, stage 3 (moderate) (5) Hypokalemia Current Visit: Yes Status: Acute Assessment and plan: Improved. (6) CKD (chronic kidney disease) stage 3, GFR 30-59 ml/min Current Visit: Yes Status: Chronic Assessment and plan: Stable. (7) Depression due to acute cerebrovascular accident (CVA) Current Visit: No Status: Acute Assessment and plan: This seems to be stable and improved. - Subjective Interval history: Patient is without complaint. He feels that he is doing better, today. He was able to put on his own socks and shoes without assistance. Bowels are still little loose but nearly normal. Urinary symptoms are absent. Patient has no complaint of chest discomfort, dyspnea, orthopnea, palpitations, nausea or vomiting, constipation or diarrhea, other changes in bowel habits, difficulty with urination, rash or itching, or other new complaints, except as mentioned above. Review of systems is otherwise negative. I discussed management of patient's care with nursing staff. - Constitutional Vitals: Temp Pulse Resp BP Pulse Ox 96.7 F L 69 16 134/79 95 05/03/19 08:00 05/03/19 08:00 05/03/19 08:00 05/03/19 08:00 05/03/19 08:00 Exam: Examination: (Except as mentioned above): General: In no apparent distress. Alert and oriented 3. Nondiaphoretic. Head: Atraumatic and normocephalic. Respiratory: No use of accessory muscles. Lungs are clear throughout. Normal airflow. Cardiovascular: Regular rate and rhythm without murmur appreciated. Abdomen: Bowel sounds are normal. No hepatosplenomegaly mass or tenderness appreciated. Obese and therefore difficult to palpate deeply.Patient is examined upright in chair and this also limits exam. Extremities: No cyanosis clubbing or edema. Skin: Warm and non-diaphoretic with no new lesions noted. Internal Medicine: Result - Labs CBC & Chem 7: 04/24/19 05:35 04/30/19 05:03 Consult Discharge Plan - Plan Referrals: Eligio Mancilla DO [Primary Care Provider] -
[2019-05-04] MEDS: Insulin LISPRO 300 UNITS/3 ML VIAL SQ SCH ×4 (07:37→20:23)
[2019-05-04] MEDS: Artificial Tears SOLN 15 ML BOTTLE LEFT EYE SCH ×3 (08:35→20:23)
[2019-05-04] MEDS: Cholecalciferol (D-3) 1,000 UNIT (25MCG) TABLET PO SCH (08:35)
[2019-05-04] MEDS: *HR* Metformin 500 MG TABLET PO SCH (08:35)
[2019-05-04] MEDS: Metoprolol XL (24 HR) Succ 25 MG TAB.ER.24H PO SCH (08:36)
[2019-05-04] MEDS: *HR* Enoxaparin 40 MG/0.4 ML SYRINGE SQ SCH (08:36)
--- NOTE | 2019-05-04 13:33 | Internal Med Progress Note ---
Date of Encounter: 05/04/19 Time of Encounter: 13:32 - Assessment and plan (1) CVA (cerebral vascular accident) Current Visit: No Status: Acute Assessment and plan: Seems to be progressing, consistently. Qualifiers: CVA mechanism: unspecified Qualified Code(s): I63.9 - Cerebral infarction, unspecified (2) Obstructive sleep apnea Current Visit: Yes Status: Acute Assessment and plan: Will need polysomnography at discharge. (3) Hypertension Current Visit: Yes Status: Chronic Assessment and plan: Controlled. Qualifiers: Hypertension type: essential hypertension Qualified Code(s): I10 - Essential (primary) hypertension (4) Diabetes Current Visit: Yes Status: Chronic Assessment and plan: Good control. Qualifiers: Diabetes mellitus type: type 2 Diabetes mellitus long term acute care registered nurse insulin use: without long term acute care registered nurse use Diabetes mellitus complication status: with kidney complications Diabetes mellitus complication detail: with chronic kidney disease Chronic kidney disease stage: stage 3 (moderate) Qualified Code(s): E11.22 - Type 2 diabetes mellitus with diabetic chronic kidney disease; N18.3 - Chronic kidney disease, stage 3 (moderate) (5) Hypokalemia Current Visit: Yes Status: Acute Assessment and plan: Improved, will recheck. (6) CKD (chronic kidney disease) stage 3, GFR 30-59 ml/min Current Visit: Yes Status: Chronic Assessment and plan: Stable, will recheck. 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 - Subjective Interval history: Patient is without complaint. He continues to have hoarseness of his voice, since arrival at this hospital. His wonders if this might be related to potassium supplements that he is receiving. I told her that this would be unusual and it might be dry hospital where or other allergy or his stroke. We will follow and suggest that if this persists for 8-12 weeks, he will need to see an research worker kitchen. Bowels are firmer, today. No other complaints. Patient has no complaint of chest discomfort, dyspnea, orthopnea, palpitations, nausea or vomiting, constipation or diarrhea, other changes in bowel habits, difficulty with urination, rash or itching, or other new complaints, except as mentioned above. Review of systems is otherwise negative. I discussed management of patient's care with nursing staff. - Constitutional Vitals: Temp Pulse Resp BP Pulse Ox 98.6 F 71 16 152/77 94 05/04/19 07:34 05/04/19 07:34 05/04/19 07:34 05/04/19 07:34 05/04/19 07:34 Exam: Examination: (Except as mentioned above): General: In no apparent distress. Alert and oriented 3. Nondiaphoretic. Head: Atraumatic and normocephalic. Voice: Patient has a soft voice and this seems at his baseline but his states that this is the way it is been since arrival at this hospital. Respiratory: No use of accessory muscles. Lungs are clear throughout. Normal airflow. Cardiovascular: Regular rate and rhythm without murmur appreciated. Abdomen: Bowel sounds are normal. No hepatosplenomegaly mass or tenderness appreciated. Obese and therefore difficult to palpate deeply. Patient is examined upright in chair and this also limits exam. Extremities: No cyanosis clubbing or edema. Skin: Warm and non-diaphoretic with no new lesions noted. Internal Medicine: Result - Labs CBC & Chem 7: 04/24/19 05:35 04/30/19 05:03 Consult Discharge Plan - Plan Referrals: Eligio Mancilla DO [Primary Care Provider] -
[2019-05-05 05:47] LABS: Basophils # 0.1 K/mcL (0.0-0.2); Basophils % 0.5 %; Eosinophils # 0.3 K/mcL (0.0-0.6); Eosinophils % 2.8 %; Hematocrit 37.5 % (37.5-50.1); Hemoglobin 12.2 g/dL (12.9-16.9); Immature Granulocytes % 0.3 % (0-4); Lymphocytes # 2.4 K/mcL (0.6-4.6); Mean Corpuscular HGB Conc 32.5 g/dL (31.6-35.5); Mean Corpuscular Hemoglobin 28.6 pg (28.0-33.3); Mean Platelet Volume 11.5 fL (9.4-12.4); Monocytes # 0.8 K/mcL (0.0-1.3); Monocytes % 8.2 %; Neutrophils # 6.1 K/mcL (1.6-8.9); Platelet Count 229 K/mcL (140-400); Red Blood Count 4.26 M/mcL (4.19-5.50); Red Cell Distribution Width 13.6 % (11.5-14.5); Segmented Neutrophils % 63.2 %; White Blood Count 9.7 K/mcL (4.3-11.1)
[2019-05-05 06:05] LABS: Alanine Aminotransferase 17 Units/L (7-52); Albumin 3.8 g/dL (3.5-5.7); Albumin/Globulin Ratio 1.7 (1.1-2.2); Alkaline Phosphatase 153 Units/L (34-104); Aspartate Amino Transferase 14 Units/L (13-39); BUN/Creatinine Ratio 12 (6-26); Bilirubin,Total 0.5 mg/dL (0.3-1.0); Blood Urea Nitrogen 17 mg/dL (8-23); Calcium 9.1 mg/dL (8.6-10.3); Carbon Dioxide 27 mEq/L (23-29); Chloride 107 mEq/L (98-107); Globulin 2.3 g/dL (2.4-3.5); Glucose 115 mg/dL (70-105); Osmolality,Calculated 294 (280-300); Potassium 3.8 mEq/L (3.5-5.1); Sodium 141 mEq/L (136-145); Total Protein 6.1 g/dL (6.4-8.9); eGFR For African Americans > 60 (> 60); eGFR For Non-African Americans 51 (> 60)
[2019-05-05] MEDS: Insulin LISPRO 300 UNITS/3 ML VIAL SQ SCH ×4 (08:28→21:41)
[2019-05-05] MEDS: Cholecalciferol (D-3) 1,000 UNIT (25MCG) TABLET PO SCH (09:40)
[2019-05-05] MEDS: Metoprolol XL (24 HR) Succ 25 MG TAB.ER.24H PO SCH (09:41)
[2019-05-05] MEDS: *HR* Enoxaparin 40 MG/0.4 ML SYRINGE SQ SCH (09:41)
[2019-05-05] MEDS: *HR* Metformin 500 MG TABLET PO SCH (09:41)
[2019-05-05] MEDS: Artificial Tears SOLN 15 ML BOTTLE LEFT EYE SCH ×3 (09:45→21:40)
--- NOTE | 2019-05-05 10:11 | Internal Med Progress Note ---
Date of Encounter: 05/05/19 Time of Encounter: 10:08 - Assessment and plan (1) CVA (cerebral vascular accident) Current Visit: No Status: Acute Assessment and plan: Will discharge when acceptable to therapies. Qualifiers: CVA mechanism: unspecified Qualified Code(s): I63.9 - Cerebral infarction, unspecified (2) Obstructive sleep apnea Current Visit: Yes Status: Acute Assessment and plan: Recheck oxygen saturation as noted. (3) Hypertension Current Visit: Yes Status: Chronic Assessment and plan: Controlled. Qualifiers: Hypertension type: essential hypertension Qualified Code(s): I10 - Essential (primary) hypertension (4) Diabetes Current Visit: Yes Status: Chronic Assessment and plan: Sugar control is generally improved. Qualifiers: Diabetes mellitus type: type 2 Diabetes mellitus half-way insulin use: without graphic user interface designer use Diabetes mellitus complication status: with kidney complications Diabetes mellitus complication detail: with chronic kidney disease Chronic kidney disease stage: stage 3 (moderate) Qualified Code(s): E11.22 - Type 2 diabetes mellitus with diabetic chronic kidney disease; N18.3 - Chronic kidney disease, stage 3 (moderate) (5) Hypokalemia Current Visit: Yes Status: Acute Assessment and plan: Normalized. I have instructed patient that we will need to follow. (6) CKD (chronic kidney disease) stage 3, GFR 30-59 ml/min Current Visit: Yes Status: Chronic Assessment and plan: Stable per recent labs. 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 He is doing well and feels like he is progressing well in therapies. He is wanting to go home. Therapy states that he is progressing and may have made him modified independent. Nursing states that he has been refusing his nocturnal oxygen. I discussed this with him and we will again check oxygen saturation tonight to see if he still needs. Patient has no complaint of chest discomfort, dyspnea, orthopnea, palpitations, nausea or vomiting, constipation or diarrhea, other changes in bowel habits, difficulty with urination, rash or itching, or other new complaints, except as mentioned above. Review of systems is otherwise negative. I discussed management of patient's care with nursing staff. - Constitutional Vitals: Temp Pulse Resp BP Pulse Ox 97.9 F 64 18 132/72 95 05/05/19 09:00 05/05/19 09:00 05/05/19 09:00 05/05/19 09:00 05/05/19 09:00 Exam: General: In no apparent distress. Alert and oriented 3. Nondiaphoretic. Head: Atraumatic and normocephalic. Respiratory: No use of accessory muscles. Lungs are clear throughout. Normal airflow. Cardiovascular: Regular rate and rhythm without murmur appreciated. Abdomen: Bowel sounds are normal. No hepatosplenomegaly mass or tenderness appreciated. Obese and therefore difficult to palpate deeply. Extremities: No cyanosis clubbing or edema. Skin: Warm and non-diaphoretic with no new lesions noted. Neurologic: Strength continued to improve but he has mild ataxia which persists. Speech seems to be normal but he still has a soft voice. Internal Medicine: Result - Labs CBC & Chem 7: 05/05/19 05:35 05/05/19 05:35 Labs: Short CBC 05/05/19 Range/Units 05:35 WBC 9.7 (4.3-11.1) K/mcL Hgb 12.2 L (12.9-16.9) g/dL Hct 37.5 (37.5-50.1) % Plt Count 229 (140-400) K/mcL Neutrophils # 6.1 (1.6-8.9) K/mcL BMP 05/05/19 05:35 Sodium 141 Potassium 3.8 Chloride 107 Carbon Dioxide 27 BUN 17 Creatinine 1.40 H Glucose 115 H Calcium 9.1 Liver Function 05/05/19 Range/Units 05:35 Total Bilirubin 0.5 (0.3-1.0) mg/dL AST 14 (13-39) Units/L ALT 17 (7-52) Units/L Alkaline Phosphatase 153 H (34-104) Units/L Albumin 3.8 (3.5-5.7) g/dL Consult Discharge Plan - Plan Referrals: Eligio Mancilla DO [Primary Care Provider] -
[2019-05-06 07:39] VITALS: BP 128/68
[2019-05-06] MEDS: Insulin LISPRO 300 UNITS/3 ML VIAL SQ SCH ×2 (08:38→11:50)
--- NOTE | 2019-05-06 09:32 | Discharge Summary ---
- NOTES TO OUTPATIENT PROVIDER Notes to Outpatient Provider: Needs polysomnogram. Date of Encounter: 05/06/19 Time of Encounter: 08:45 - Discharge Diagnosis (1) CVA (cerebral vascular accident) Priority: Primary Status: Acute Qualifiers: CVA mechanism: unspecified Qualified Code(s): I63.9 - Cerebral infarction, unspecified (2) Obstructive sleep apnea Priority: Secondary Status: Acute (3) Hypertension Priority: Secondary Status: Chronic Qualifiers: Hypertension type: essential hypertension Qualified Code(s): I10 - Essential (primary) hypertension (4) Diabetes Priority: Secondary Status: Chronic Qualifiers: Diabetes mellitus type: type 2 Diabetes mellitus shelter insulin use: without shelter use Diabetes mellitus complication status: with kidney complications Diabetes mellitus complication detail: with chronic kidney disease Chronic kidney disease stage: stage 3 (moderate) Qualified Code(s): E11.22 - Type 2 diabetes mellitus with diabetic chronic kidney disease; N18.3 - Chronic kidney disease, stage 3 (moderate) (5) Hypokalemia Priority: Secondary Status: Acute (6) CKD (chronic kidney disease) stage 3, GFR 30-59 ml/min Priority: Secondary Status: Chronic (7) 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 Echavarria is a 64 year old male who had a right pontine stroke with left hemiparesis, approximately 3 days prior to his admission here. He had mild ataxia and mild weakness of both upper and lower extremities on the left. He had left facial droop with minimal speech changes. 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 The patient had difficulty with hypoxia early on. It was felt that he had sleep apnea but this has not been diagnosed. The neurologist at [facility] felt that he should have polysomnogram and CBC is discharged. The patient had grade diarrhea with increasing his dose of metformin so this was decreased. His sugar control improved with admission. The patient was felt to have some depression and had been placed on antidepressant in the form of SSRI, at his other hospitalization. This was not increased during his stay, here. The patient preferred that he was not increased in fact wanted to discontinue it but agreed to use for a month or 2. The patient improved with time in therapies. He is to be discharged with outpatient physical and occupational therapy. Discharge discussed with: patient - Time Spent with Patient Total time spent providing and/or coordinating discharge services: - Discharge Medications Prescriptions: No Action Glimepiride [Amaryl] 2 mg PO QAM Losartan/Hydrochlorothiazide [Losartan-Hctz 100-25 mg Tab] 1 tab PO DAILY Metformin HCl [Glucophage] 500 mg PO DAILY Metoprolol Succinate [Toprol Xl] 25 mg PO DAILY Atorvastatin [Lipitor] 40 mg PO HS tablet Clopidogrel [Plavix] 75 mg PO DAILY tablet Sertraline [Zoloft] 50 mg PO DAILY tablet Tramadol HCl [Ultram] 50 mg PO Q8H PRN 7 Days #14 tab PRN Reason: Pain Home Medications: Glimepiride [Amaryl] 2 mg PO QAM 04/19/19 [History] Losartan/Hydrochlorothiazide [Losartan-Hctz 100-25 mg Tab] 1 tab PO DAILY 04/19/19 [History] Metformin HCl [Glucophage] 500 mg PO DAILY 04/19/19 [History] Metoprolol Succinate [Toprol Xl] 25 mg PO DAILY 04/19/19 [History] Atorvastatin [Lipitor] 40 mg PO HS tablet 04/23/19 [Rx] Clopidogrel [Plavix] 75 mg PO DAILY tablet 04/23/19 [Rx] Sertraline [Zoloft] 50 mg PO DAILY tablet 04/23/19 [Rx] Tramadol HCl [Ultram] 50 mg PO Q8H PRN 7 Days #14 tab 04/23/19 [Rx] Allergies/Adverse Reactions: Allergy/AdvReac Type Severity Reaction Status Date / Time Amoxicillin Allergy Rash Verified 04/19/19 14:07 peanut Allergy Anaphylaxis Verified 04/19/19 14:07 Penicillins [PCN] Allergy Rash Verified 04/19/19 14:07 Date of admission: 04/23/19 17:01 Primary care physician: Eligio Mancilla Consults: 04/23/19 17:58 Consult to Occupational Therapy [CONS] Routine Comment: Evaluate, develop and implement POC Reason for Consult: Weakness post CVA Does patient have active BEDREST order?: No Is patient medically & hemodynamically stable?: Yes Patient assessed for mobility or mobilized this visit?: No Consult to Physical Therapy [CONS] Routine Comment: Evaluate, develop and implement POC Reason for Consult: Weakness post CVA Does patient have active BEDREST order?: No Is patient medically & hemodynamically stable?: Yes Patient assessed for mobility or mobilized this visit?: No Consult to Recreational Therapy [CONS] Routine Comment: Evaluate, develop and implement POC Consult to Extrusion Die Template Maker [CONS] Routine Reason for SW Consult: Discharge Process Consult to Speech Therapy [CONS] Routine Comment: Evaluate, develop and implement POC Reason for Consult: speech impairment Call Completed: Yes 04/23/19 18:27 Consult to Psychology [CONS] Routine Consulting Provider: Helen Pak Reason for Consult: Possible depression; adjustment disorder Call Completed: No Discharging clinician: Walter Gupta Anticipated date of discharge: 05/06/19 - Constitutional Vitals: Temp Pulse Resp BP Pulse Ox 98.5 F 60 16 128/68 93 05/06/19 07:34 05/06/19 07:34 05/06/19 07:34 05/06/19 07:34 05/06/19 07:34 Exam: General: In no apparent distress. Alert and oriented 3. Nondiaphoretic. Head: Atraumatic and normocephalic. Respiratory: No use of accessory muscles. Lungs are clear throughout. Normal airflow. Cardiovascular: Regular rate and rhythm without murmur appreciated. Abdomen: Bowel sounds are normal. No hepatosplenomegaly mass or tenderness appreciated. Obese and therefore difficult to palpate deeply. Extremities: No cyanosis clubbing or edema. Skin: Warm and non-diaphoretic with no new lesions noted. Neurologic: Patient still with flattening left facial musculature. He has mild weakness of left upper extremity and left lower extremity. There is also mild ataxia of the left hand and dysdiadochokinesis. - Patient Status Disposition: Home, Self-Care Condition: Good Functional capacity at discharge: uses cane/walker Overall status at discharge: patient is progressing back to baseline - Discharge Instructions Follow Up With: Nika Maier MD [Partnered Physician] - 05/16/19 9:00 am Eligio Mancilla DO [Primary Care Provider] - 05/12/19 10:00 am (Will see Dr. Landers at this appointment.)
[2019-05-06] MEDS: *HR* Metformin 500 MG TABLET PO SCH (10:00)
[2019-05-06] MEDS: *HR* Enoxaparin 40 MG/0.4 ML SYRINGE SQ SCH (10:00)
[2019-05-06] MEDS: Metoprolol XL (24 HR) Succ 25 MG TAB.ER.24H PO SCH (10:00)
[2019-05-06] MEDS: Artificial Tears SOLN 15 ML BOTTLE LEFT EYE SCH (10:04)
== END 2019-05-06 15:10 | disposition home or self-care (01) | DRG 57 ==
LOC: INPGRE 17:01